=== PATIENT | female | born 1995 | race Caucasian/White ===

== ENCOUNTER 2018-09-25 09:20 | Emergency (ER) | payer BC ==
[2018-09-25 09:30] VITALS: PULSE 86; RESP 20; TEMP 98
[2018-09-25] MEDS ORDERED: SODIUM CHLORIDE 0.9% 1,000 ML IV STA (10:01)
[2018-09-25] MEDS ORDERED: ONDANSETRON 4 MG/2 ML VIAL IVP STA (10:15)
[2018-09-25] MEDS ORDERED: ACETAMINOPHEN IV (For NPO) 1,000 MG in EMPTY BAG 1 BAG IVPB STA (10:15)
[2018-09-25 10:17] VITALS: BP 117/77
[2018-09-25 10:30] LABS: Basophils % (A) 0 %; Eosinophils # (A) 0.3 k/uL (0-0.7); Eosinophils % (A) 3 %; HCT 43.1 % (34.0-46.0); HGB 14.2 gm/dL (11.4-16.0); Lymphocytes # (A) 1.2 k/uL (1.0-4.8); Lymphocytes % (A) 12 %; MCH 30.2 pg (25.0-35.0); MCV 91.4 fL (80.0-100.0); Mean Platelet Volume 6.8; Monocytes # (A) 0.5 k/uL (0-1.0); Monocytes % (A) 4 %; Neutrophils # (A) 8.4 k/uL (1.3-7.7); Neutrophils % (A) 80 %; Platelet Count 413 k/uL (150-450); RBC 4.71 m/uL (3.80-5.40); RDW 12.2 % (11.5-15.5); WBC 10.6 k/uL (3.8-10.6)
[2018-09-25 10:34] LABS: Appearance,Urine Clear (Clear); Bilirubin,Urine Negative (Negative); Blood,Urine Small (Negative); Color,Urine Yellow; Glucose,Urine (UA) Negative (Negative); Ketones,Urine Negative (Negative); Leukocyte Esterase,Urine Negative (Negative); Mucus,Urine Few /hpf; Nitrite,Urine Negative (Negative); Protein,Urine Trace (Negative); RBC,Urine 2 /hpf (0-5); Specific Gravity,Urine 1.021 (1.001-1.035); Squamous Epithelial Cell,Urine <1 /hpf (0-4); Urobilinogen,Urine <2.0 mg/dL (<2.0)
--- NOTE | 2018-09-25 10:37 | ED ---
General Adult HPI - General Chief complaint: Abdominal Pain Stated complaint: Abd Pain Time Seen by Provider: 09/25/18 09:49 Source: patient, RN notes reviewed Mode of arrival: wheelchair Limitations: no limitations - History of Present Illness Initial comments: Patient 23-year-old female presenting to the emergency room today with a chief complaint of abdominal pain that started yesterday. States she was at work today and the pain doubled her over. She does admit to pain in the right side of the abdomen. States she did go to urgent care. She states she was advised coming here to the emergency room to rule out appendicitis. Patient does admit to feeling nauseated. Denies any other complaints. Patient denies any recent fever, chills, shortness of breath, chest pain, back pain, numbness or tingling , headaches or visual changes, or any other complaints. - Related Data Home Medications Medication Instructions Recorded Confirmed Ibuprofen [Motrin Ib] 400 mg PO Q6H PRN 09/25/18 09/25/18 LORazepam [Ativan] 0.5 mg PO HS 09/25/18 09/25/18 buPROPion XL [Wellbutrin Xl] 150 mg PO DAILY 09/25/18 09/25/18 lamoTRIgine [LaMICtal] 150 mg PO HS 09/25/18 09/25/18 Allergies Allergy/AdvReac Type Severity Reaction Status Date / Time No Known Allergies Allergy Verified 09/25/18 09:49 Review of Systems ROS Statement: Those systems with pertinent positive or pertinent negative responses have been documented in the HPI. ROS Other: All systems not noted in ROS Statement are negative. Past Medical History Past Medical History: Asthma History of Any Multi-Drug Resistant Organisms: None Reported Past Surgical History: No Surgical Hx Reported Past Psychological History: No Psychological Hx Reported Smoking Status: Never smoker Past Alcohol Use History: None Reported Past Drug Use History: None Reported General Exam - General Exam Comments Initial Comments: General: The patient is awake and alert, in no distress, and does not appear acutely ill. Eye: There is normal conjunctiva bilaterally. No signs of icterus. Ears, nose, mouth and throat: There are moist mucous membranes and no oral lesions. Neck: The neck is supple, there is no tenderness or JVD. Cardiovascular: There is a regular rate and rhythm. No murmur, rub or gallop is appreciated. Respiratory: Lungs are clear to auscultation, respirations are non-labored, breath sounds are equal. No wheezes, stridor, rales, or rhonchi. Gastrointestinal: Abdomen soft on palpation. Patient does have tenderness in the right lower quadrant. No rebound, guarding or CVA tenderness. Musculoskeletal: Normal ROM, no tenderness. Strength 5/5. Sensation intact. Pulses equal bilaterally 2+. Neurological: A&O x 3. CN II-XII intact, There are no obvious motor or sensory deficits. Coordination appears grossly intact. Speech is normal. Skin: Skin is warm and dry and no rashes or lesions are noted. Psychiatric: Cooperative, appropriate mood & affect, normal judgment. Limitations: no limitations Course Vital Signs 09/25/18 09/25/18 09:28 10:00 Temperature 98.0 F Pulse Rate 86 Respiratory 20 Rate Blood Pressure 125/79 117/77 O2 Sat by Pulse 100 Oximetry Medical Decision Making - Medical Decision Making Patient reexamined at this time shows no signs of distress is resting comfortably. Patient's labs been reviewed. Glucose was 66. Patient was given something to eat and drink here prior to discharge. Patient's CT the abdomen and pelvis reviewed and shows evidence for hemorrhage normal. Heart shows a most likely uterine fibroid. There is some free fluid on the lower cul-de-sac. No evidence of any ovarian cyst. Ovaries appeared normal. Was discussed with the patient about following up with family doctor over the next 2 days return here to the emergency room symptoms increase or worsen. She states understanding and is in agreement. - Lab Data Result diagrams: 09/25/18 09:55 09/25/18 09:55 Lab Results 09/25/18 09/25/18 09/25/18 Range/Units 09:55 09:55 10:05 WBC 10.6 (3.8-10.6) k/uL RBC 4.71 (3.80-5.40) m/uL Hgb 14.2 (11.4-16.0) gm/dL Hct 43.1 (34.0-46.0) % MCV 91.4 (80.0-100.0) fL MCH 30.2 (25.0-35.0) pg MCHC 33.0 (31.0-37.0) g/dL RDW 12.2 (11.5-15.5) % Plt Count 413 (150-450) k/uL Neutrophils % 80 % Lymphocytes % 12 % Monocytes % 4 % Eosinophils % 3 % Basophils % 0 % Neutrophils # 8.4 H (1.3-7.7) k/uL Lymphocytes # 1.2 (1.0-4.8) k/uL Monocytes # 0.5 (0-1.0) k/uL Eosinophils # 0.3 (0-0.7) k/uL Basophils # 0.0 (0-0.2) k/uL Sodium 142 (137-145) mmol/L Potassium 4.5 (3.5-5.1) mmol/L Chloride 106 (98-107) mmol/L Carbon Dioxide 26 (22-30) mmol/L Anion Gap 10 mmol/L BUN 11 (7-17) mg/dL Creatinine 0.72 (0.52-1.04) mg/dL Est GFR (CKD-EPI)AfAm >90 (>60 ml/min/1.73 sqM) Est GFR (CKD-EPI)NonAf >90 (>60 ml/min/1.73 sqM) Glucose 66 L (74-99) mg/dL Calcium 9.8 (8.4-10.2) mg/dL Total Bilirubin 0.4 (0.2-1.3) mg/dL AST 19 (14-36) U/L ALT 19 (9-52) U/L Alkaline Phosphatase 40 (38-126) U/L Total Protein 7.4 (6.3-8.2) g/dL Albumin 4.5 (3.5-5.0) g/dL Amylase 52 (30-110) U/L Lipase 143 (23-300) U/L Urine Color Urine Appearance (Clear) Urine pH (5.0-8.0) Ur Specific [place] (1.001-1.035) Urine Protein (Negative) Urine Glucose (UA) (Negative) Urine Ketones (Negative) Urine Blood (Negative) Urine Nitrite (Negative) Urine Bilirubin (Negative) Urine Urobilinogen (<2.0) mg/dL Ur Leukocyte Esterase (Negative) Urine RBC (0-5) /hpf Urine WBC (0-5) /hpf Ur Squamous Epith Cells (0-4) /hpf Urine Mucus (None) /hpf Urine HCG, Qual Not Detected (Not Detectd) 09/25/18 Range/Units 10:05 WBC (3.8-10.6) k/uL RBC (3.80-5.40) m/uL Hgb (11.4-16.0) gm/dL Hct (34.0-46.0) % MCV (80.0-100.0) fL MCH (25.0-35.0) pg MCHC (31.0-37.0) g/dL RDW (11.5-15.5) % Plt Count (150-450) k/uL Neutrophils % % Lymphocytes % % Monocytes % % Eosinophils % % Basophils % % Neutrophils # (1.3-7.7) k/uL Lymphocytes # (1.0-4.8) k/uL Monocytes # (0-1.0) k/uL Eosinophils # (0-0.7) k/uL Basophils # (0-0.2) k/uL Sodium (137-145) mmol/L Potassium (3.5-5.1) mmol/L Chloride (98-107) mmol/L Carbon Dioxide (22-30) mmol/L Anion Gap mmol/L BUN (7-17) mg/dL Creatinine (0.52-1.04) mg/dL Est GFR (CKD-EPI)AfAm (>60 ml/min/1.73 sqM) Est GFR (CKD-EPI)NonAf (>60 ml/min/1.73 sqM) Glucose (74-99) mg/dL Calcium (8.4-10.2) mg/dL Total Bilirubin (0.2-1.3) mg/dL AST (14-36) U/L ALT (9-52) U/L Alkaline Phosphatase (38-126) U/L Total Protein (6.3-8.2) g/dL Albumin (3.5-5.0) g/dL Amylase (30-110) U/L Lipase (23-300) U/L Urine Color Yellow Urine Appearance Clear (Clear) Urine pH 6.0 (5.0-8.0) Ur Specific [place] 1.021 (1.001-1.035) Urine Protein Trace H (Negative) Urine Glucose (UA) Negative (Negative) Urine Ketones Negative (Negative) Urine Blood Small H (Negative) Urine Nitrite Negative (Negative) Urine Bilirubin Negative (Negative) Urine Urobilinogen <2.0 (<2.0) mg/dL Ur Leukocyte Esterase Negative (Negative) Urine RBC 2 (0-5) /hpf Urine WBC 1 (0-5) /hpf Ur Squamous Epith Cells <1 (0-4) /hpf Urine Mucus Few H (None) /hpf Urine HCG, Qual (Not Detectd) Disposition Clinical Impression: Abdominal pain Disposition: HOME SELF-CARE Condition: Good Instructions: Abdominal Pain (ED) Additional Instructions: Please use medication as discussed. Please follow-up with family doctor in the next 2 days. Please return to emergency room if the symptoms increase or worsen or for any other concerns. Is patient prescribed a controlled substance at d/c from ED?: No Referrals: Je Carrillo MD [Primary Care Provider] - 1-2 days Time of Disposition: 12:20
[2018-09-25 10:43] LABS: ALT 19 U/L (9-52); AST 19 U/L (14-36); Albumin 4.5 g/dL (3.5-5.0); Alkaline Phosphatase 40 U/L (38-126); Amylase 52 U/L (30-110); Anion Gap 10 mmol/L; Blood Urea Nitrogen 11 mg/dL (7-17); Calcium 9.8 mg/dL (8.4-10.2); Carbon Dioxide 26 mmol/L (22-30); Chloride 106 mmol/L (98-107); Glucose 66 mg/dL (74-99); Lipase 143 U/L (23-300); Potassium 4.5 mmol/L (3.5-5.1); Sodium 142 mmol/L (137-145); Total Bilirubin 0.4 mg/dL (0.2-1.3); Total Protein 7.4 g/dL (6.3-8.2)
--- NOTE | 2018-09-25 11:29 | CT ---
EXAMINATION TYPE: CT abdomen pelvis w con DATE OF EXAM: 09/25/2018 COMPARISON: None HISTORY: RLQ pain, umbilical pain CT DLP: 526.7 mGycm Automated exposure control for dose reduction was used. TECHNIQUE: Helical acquisition of images from the lung bases through the pelvis have been completed. CONTRAST: Performed without Oral Contrast and with IV Contrast, patient injected with 100 mL of Isovue 300. FINDINGS: LUNG BASES: No significant abnormality is appreciated. AORTA: No significant abnormality is appreciated. LIVER/GB: Initial images show a dense focus within the left lobe of the liver measuring approximately 12 to 13 mm in size lateral segment is not seen on delayed images. Gallbladder is unremarkable.. PANCREAS: No significant abnormality is seen. SPLEEN: No significant abnormality is seen. ADRENALS: No significant abnormality is seen. KIDNEYS: No significant abnormality is seen. REPRODUCTIVE ORGANS: Focal low density lesion measuring approximately 2 cm in the left fundus compati ble with fibroid, ovaries within normal limits. Suspect a tampon is in place. BOWEL: Questionable thickening of the rectosigmoid colon.. No evident appendicitis in the visualized portions of the appendix. FREE AIR: No Free Air visible. Minimal free fluid present within the pelvis may be physiologic. PELVIC ADENOPATHY: None visualized. RETROPERITONEAL ADENOPATHY: No Retroperitoneal Adenopathy visible. URINARY BLADDER: No significant abnormality is seen. OSSEOUS STRUCTURES: No significant abnormality is seen. IMPRESSION: INDETERMINATE LESION WITHIN THE LEFT LOBE OF LIVER MAY REPRESENT HEMANGIOMA, LIVER MRI COULD BE PERFO RMED FOR BETTER EVALUATION. MINIMAL FREE FLUID IN THE PELVIS, FIBROID UTERUS. CORRELATE FOR COLITIS, FOLLOW-UP INDICATED.
== END 2018-09-25 12:49 | disposition home or self-care (01) ==
LOC: EC 09:20
DX: R10.9 Unspecified abdominal pain (principal); R11.0 Nausea; Z79.899 Other long term (current) drug therapy
CPT/HCPCS: 36415; 80053; 82150; 83690; 85025; 81001; 81025; 74177; 99284; 96365; 96366; 96375; 96361; J2405; J0131; Q9967

== ENCOUNTER 2023-09-27 20:43 | Emergency (ER) | payer BC, OTHER ==
[2023-09-27 20:59] VITALS: TEMP 98.3
--- NOTE | 2023-09-27 21:21 | ED ---
Allergic Reaction HPI - General Chief complaint: Allergic Reaction Stated complaint: Allergic Reaction Time Seen by Provider: 09/27/23 21:08 Source: patient Mode of arrival: ambulatory Limitations: no limitations - History of Present Illness Initial Comments: Anamaria is a 28-year-old female with no significant past medical history presents the ER today with concern for ALLERGIC reaction. Patient reports that she was at a [employer] party using multiple different foods when suddenly she felt like her tongue was swelling up. She went to an urgent care where she was given IM doses of steroid and Benadryl and prescribed EpiPen. While she was at the pharmacy having her EpiPen filled she again noted that her tongue was swelling up. She didn't have any chest pain or trouble breathing she had no nausea and no GI symptoms. No rash or hives. She has no previous history of ALLERGIC reaction so she does report she has some food intolerances. - Related Data Home Medications Medication Instructions Recorded Confirmed Ibuprofen [Motrin Ib] 400 mg PO Q6H PRN 09/25/18 09/25/18 LORazepam [Ativan] 0.5 mg PO HS 09/25/18 09/25/18 buPROPion XL [Wellbutrin Xl] 150 mg PO DAILY 09/25/18 09/25/18 lamoTRIgine [LaMICtal] 150 mg PO HS 09/25/18 09/25/18 Allergies Allergy/AdvReac Type Severity Reaction Status Date / Time No Known Allergies Allergy Verified 09/25/18 09:49 Review of Systems ROS Statement: Those systems with pertinent positive or pertinent negative responses have been documented in the HPI. ROS Other: All systems not noted in ROS Statement are negative. Past Medical History Past Medical History: Asthma History of Any Multi-Drug Resistant Organisms: None Reported Past Surgical History: No Surgical Hx Reported Past Psychological History: No Psychological Hx Reported Smoking Status: Never smoker Past Alcohol Use History: None Reported Past Drug Use History: None Reported General Exam Limitations: no limitations General appearance: alert Head exam: Present: atraumatic Eye exam: Present: normal appearance, PERRL ENT exam: Present: other (Angioedema of the tongue, no angioedema of the lips no angioedema of the uvula) Neck exam: Present: normal inspection Respiratory exam: Present: normal lung sounds bilaterally. Absent: respiratory distress Cardiovascular Exam: Present: regular rate, tachycardia GI/Abdominal exam: Present: soft. Absent: distended, tenderness Rectal exam: Present: deferred Neurological exam: Present: alert, oriented X3 Psychiatric exam: Present: normal affect, normal mood Skin exam: Present: warm, dry Course Vital Signs 09/27/23 09/27/23 09/27/23 20:44 21:03 21:10 Temperature 98.3 F Pulse Rate 125 H 110 H 103 H Respiratory 20 23 20 Rate Blood Pressure 160/93 131/87 131/87 O2 Sat by Pulse 100 100 100 Oximetry 09/27/23 09/27/23 09/27/23 21:20 21:30 21:40 Temperature Pulse Rate 109 H 115 H 103 H Respiratory 15 14 18 Rate Blood Pressure 120/82 128/91 115/83 O2 Sat by Pulse 100 100 100 Oximetry 09/27/23 09/27/23 09/27/23 21:45 21:50 21:55 Temperature Pulse Rate 113 H 108 H 104 H Respiratory 20 20 18 Rate Blood Pressure 133/84 128/85 130/78 O2 Sat by Pulse 100 100 100 Oximetry 09/27/23 09/27/23 09/27/23 22:00 22:05 22:10 Temperature Pulse Rate 107 H 105 H 105 H Respiratory 22 20 18 Rate Blood Pressure 128/75 116/78 115/77 O2 Sat by Pulse 100 100 99 Oximetry 09/27/23 09/27/23 22:15 23:11 Temperature Pulse Rate 115 H 99 Respiratory 19 18 Rate Blood Pressure 120/73 122/84 O2 Sat by Pulse 99 100 Oximetry Medical Decision Making - Medical Decision Making Was pt. sent in by a medical professional or institution (, PA, SOFTWARE SECURITY ARCHITECT, urgent care, hospital, or assisted...) When possible be specific @ -Advised by urgent care to come here if symptoms persisted Did you speak to anyone other than the patient for history (EMS, parent, family, police, friend...)? What history was obtained from this source @ -Friend At bedside Did you review nursing and triage notes (agree or disagree)? Why? @ -I reviewed and agree with nursing and triage notes Were old charts reviewed (outside hosp., previous admission, EMS record, old EKG, old radiological studies, urgent care reports/EKG's, assisted records)? Report findings @ -No old charts were reviewed Differential Diagnosis (chest pain, altered mental status, abdominal pain women, abdominal pain men, vaginal bleeding, weakness, fever, dyspnea, syncope, headache, dizziness, GI bleed, back pain, seizure, CVA, palpatations, mental health)? @ -Differential includes ALLERGIC reaction, anaphylaxis, angioedema EKG interpreted by me (3pts min.). @ -As above X-rays interpreted by me (1pt min.). @ -None done CT interpreted by me (1pt min.). @ -None done U/S interpreted by me (1pt. min.). @ -None done What testing was considered but not performed or refused? (CT, X-rays, U/S, labs)? Why? @ -None What meds were considered but not given or refused? Why? @ -Benadryl and steroids had been given prior to arrival Did you discuss the management of the patient with other professionals (professionals i.e. , PA, SOFTWARE SECURITY ARCHITECT, lab, RT, psych nurse, social work associate, distributor cleaner, teacher, science and operations officer, caser)? Give summary @ -No Was smoking cessation discussed for >3mins.? @ -No Was critical care preformed (if so, how long)? @ -Yes, 30 minutes Were there social determinants of health that impacted care today? How? (Homelessness, low income, unemployed, alcoholism, drug addiction, transportation, low edu. Level, literacy, decrease access to med. care, snf, rehab)? @ -No Was there de-escalation of care discussed even if they declined (Discuss DNR or withdrawal of care, Hospice)? DNR status @ -No What co-morbidities impacted this encounter? (DM, HTN, Smoking, COPD, CAD, Cancer, CVA, ARF, Chemo, Hep., AIDS, mental health diagnosis, sleep apnea, morbid obesity)? @ -None Was patient admitted / discharged? Hospital course, mention meds given and route, prescriptions, significant lab abnormalities, going to OR and other pertinent info. @ -Discharge Patient was seen and evaluated, patient believes she is having an ALLERGIC reaction she is noted to have angioedema of the tongue with no angioedema of the lips or uvula. There is no wheezing is no rash there is no nausea or vomiting. At this time it seems to be isolated angioedema of the tongue patient has received Benadryl and steroids prior to arrival. Patient was given intramuscular epinephrine and observed for 90 minutes. She had some improvement in the angioedema she is feeling more comfortable she was able to drink water. At this time patient was determined to be stable for discharge home. She's been prescribed EpiPen and has felt the prescription. I did advise the patient keep track of any ingestions she has prior to episodes of this and if she has any episodes of this that occur without new exposures she should consider speaking with her physician about the possibility that she has hereditary angioedema. These instructions were provided a prior to discharge patient was discharged home in stable condition. Undiagnosed new problem with uncertain prognosis? @ -No Drug Therapy requiring intensive monitoring for toxicity (Heparin, Nitro, Insulin, Cardizem)? @ -No Were any procedures done? @ -No Diagnosis/symptom? @ -Angioedema of the tongue Acute, or Chronic, or Acute on Chronic? @ -default Uncomplicated (without systemic symptoms) or Complicated (systemic symptoms)? @ -default Side effects of treatment? @ -No Exacerbation, Progression, or Severe Exacerbation? @ -No Poses a threat to life or bodily function? How? (Chest pain, [place], [place], pneumonia, PE, COPD, DKA, ARF, appy, cholecystitis, CVA, Diverticulitis, Homicidal, Suicidal, threat to staff... and all critical care pts) @ -No Disposition Clinical Impression: Angioedema Disposition: HOME SELF-CARE Condition: Stable Additional Instructions: As discussed, it is possible that he had an ALLERGIC reaction however this happens again especially without provocation you need to discussed with her primary care provider further testing for hereditary angioedema Is patient prescribed a controlled substance at d/c from ED?: No Referrals: Veronica Lal DO [Primary Care Provider] - 1-2 days
[2023-09-27 23:18] VITALS: BP 122/84; PULSE 99; RESP 18
== END 2023-09-27 23:12 | disposition home or self-care (01) ==
LOC: EC 20:43 → SUPCPDRO 20:43 → EC 23:12
DX: T78.3XXA Angioneurotic edema, initial encounter (principal); J45.909 Unspecified asthma, uncomplicated
CPT/HCPCS: 99283; 96372; J0171

== ENCOUNTER 2025-02-04 08:31 | Day surgery (SDC) | payer OTHER ==
[2025-01-28 15:42] VITALS: BMI 25.0
[~2025-02-04 08:31] MED LIST: LIDOCAINE 1% (10MG/ML) FOR IV START INTRADERMA PRN
[2025-02-04] MEDS: IV FLUID CONTINUATION 1,000 ML IV ONE (08:56)
--- NOTE | 2025-02-04 08:58 | P.GSHP ---
History of Present Illness H&P Date: 02/04/25 CHIEF COMPLAINT: GI bleed HISTORY OF PRESENT ILLNESS: The patient is a 29-year-old female who presents with gastroesophageal reflux disease and need for colon screen. Upper and lower endoscopy were offered for further evaluation and management. PAST MEDICAL HISTORY: Please see list. PAST SURGICAL HISTORY: Please see list. MEDICATIONS: Please see list. ALLERGIES: Please see list. SOCIAL HISTORY: No illicit drug use FAMILY HISTORY: No reports of Crohn disease or ulcerative colitis. REVIEW OF ORGAN SYSTEMS: CONSTITUTIONAL: No reports of fevers or chills. GI: Denies any blood in stools or constipation. PHYSICAL EXAM: VITAL SIGNS: Stable GENERAL: Well-developed pleasant in no acute distress. HEENT: No scleral icterus. Extraocular movements grossly intact. Moist buccal mucosa. NECK: Supple without lymphadenopathy. CHEST: Unlabored respirations. Equal bilateral excursions. CARDIOVASCULAR: Regular rate and rhythm. Distal 2+ pulses. ABDOMEN: Soft, nondistended. MUSCULOSKELETAL: No clubbing, cyanosis, or edema. ASSESSMENT: 1. GI bleed PLAN: 1. Recommend proceeding with an upper and lower endoscopy Past Medical History Past Medical History: Asthma History of Any Multi-Drug Resistant Organisms: None Reported Past Surgical History: No Surgical Hx Reported Additional Past Surgical History / Comment(s): wisdom teeth Past Anesthesia/Blood Transfusion Reactions: No Reported Reaction Smoking Status: Never smoker - Past Family History Father Family Medical History: Myocardial Infarction ([place]) Mother Family Medical History: No Reported History Medications and Allergies Home Medications Medication Instructions Recorded Confirmed Type Ibuprofen [Motrin Ib] 400 mg PO Q6H PRN 09/25/18 01/28/25 History buPROPion XL [Wellbutrin Xl] 150 mg PO DAILY 09/25/18 01/28/25 History lamoTRIgine [LaMICtal] 150 mg PO HS 09/25/18 01/28/25 History ARIPiprazole [Abilify] 5 mg PO HS 01/28/25 01/28/25 History busPIRone HCl [Buspar] 5 mg PO BID 01/28/25 01/28/25 History Allergies Allergy/AdvReac Type Severity Reaction Status Date / Time No Known Allergies Allergy Verified 01/28/25 15:33
[2025-02-04 09:00] VITALS: TEMP 97.5
[2025-02-04] MEDS: LACTATED RINGERS 1,000 ML IV SCH (09:11)
[2025-02-04] MEDS ORDERED: LIDOCAINE 1% INJ 10MG/ML (20 ML MDV) ONE (09:18)
[2025-02-04] MEDS ORDERED: PROPOFOL 10 MG/ML 20 ML VIAL IV ONE (09:18)
[2025-02-04] MEDS ORDERED: GLYCOPYRROLATE 0.2 MG/ML 2 ML VIAL ONE (09:18)
--- NOTE | 2025-02-04 09:49 | P.PCN ---
Date of Procedure: 02/04/25 Description of Procedure: PREOPERATIVE DIAGNOSIS: Anemia Gastrointestinal bleed POSTOPERATIVE DIAGNOSIS: Gastritis OPERATION: Esophagogastroduodenoscopy with cold forceps biopsies along antrum and duodenum SURGEON: Areli Denise MD ANESTHESIA: MAC. INDICATIONS: The patient is a 29-year-old female who presents with anemia and gastrointestinal bleed. Benefits and risks of the procedure were described. Informed consent was obtained. DESCRIPTION: The patient was brought into the endoscopy suite and laid in the left lateral decubitus position. An Olympus gastroscope was passed along the posterior oropharynx down to the distal esophagus where the squamocolumnar junction was encountered at 35 cm from the incisors. The stomach was entered and no bile reflux was found. Additional findings are listed below. Biopsies with cold forceps were obtained of the antrum. The first through third portion of the duodenum was examined. Retroflexion of the scope confirmed Hill grade 2 lower esophageal valve. The squamocolumnar junction demonstrated LA grade A erosive esophagitis. The stomach was desufflated. The patient tolerated the procedure well. FINDINGS: Squamocolumnar junction 35 cm from the incisors. Diaphragmatic hiatus at 35 cm. Hill grade 2 lower esophageal valve. LA grade A erosive esophagitis. Biopsies obtained. Biopsies obtained of the duodenum. Chronic gastritis with biopsies obtained. RECOMMENDATIONS: Upper endoscopy as needed.
--- NOTE | 2025-02-04 10:13 | P.PCN ---
Date of Procedure: 02/04/25 Description of Procedure: PREOPERATIVE DIAGNOSIS: Abnormal stool function Change in bowel habits POSTOPERATIVE DIAGNOSIS: Microscopic colitis OPERATION: Colonoscopy to the cecum, ileocecal valve and appendiceal orifice. Colonoscopy with random cold forceps biopsies for microscopic colitis SURGEON: Areli Denise MD. ANESTHESIA: MAC. INDICATIONS: The patient is a 29-year-old female who presents with altered stools including change in bowel habits. Benefits and risks were described and informed consent was obtained. DESCRIPTION OF PROCEDURE: The patient had undergone Suprep. The patient had been brought into the operating room and laid in the left lateral decubitus position. After adequate intravenous sedation, the rectum was examined with 2% lidocaine jelly. No external hemorrhoids were encountered. The rectal tone was within normal limits. No lesions were palpated in the rectal vault. An Olympus colonoscope was advanced until the cecum, ileocecal valve and appendiceal orifice were clearly viewed. The prep was excellent. No scattered diverticulosis was encountered. No colonic polyps were found. Cold forceps biopsies randomly were obtained for microscopic colitis. Retroflexion of the scope demonstrated grade 1 internal hemorrhoids without active bleeding or inflammation. The colon was desufflated. The patient had tolerated the procedure well. Withdrawal time was over 6 minutes. FINDINGS: Aronchick preparation quality scale 1 (1-5) Internal hemorrhoids, grade 1 No external prolapsed hemorrhoids. No arteriovenous malformations. No adenomatous polyps. Cold forceps biopsies obtained for microscopic colitis RECOMMENDATIONS: Lower endoscopy as needed Plan - Discharge Summary Discharge Rx Participant: No New Discharge Prescriptions: Continue lamoTRIgine [LaMICtal] 150 mg PO HS Ibuprofen [Motrin Ib] 400 mg PO Q6H PRN PRN Reason: Pain buPROPion XL [Wellbutrin XL] 150 mg PO DAILY ARIPiprazole [Abilify] 5 mg PO HS busPIRone HCl [Buspar] 5 mg PO BID Discharge Medication List Ibuprofen [Motrin Ib] 400 mg PO Q6H PRN 09/25/18 [History] buPROPion XL [Wellbutrin XL] 150 mg PO DAILY 09/25/18 [History] lamoTRIgine [LaMICtal] 150 mg PO HS 09/25/18 [History] ARIPiprazole [Abilify] 5 mg PO HS 01/28/25 [History] busPIRone HCl [Buspar] 5 mg PO BID 01/28/25 [History] Follow up Appointment(s)/Referral(s): Areli Denise MD [STAFF PHYSICIAN] - 03/03/25 3:30 pm Patient Instructions/Handouts: Gastritis (DC), Microscopic Colitis (DC) Discharge Disposition: HOME SELF-CARE
[2025-02-04 10:26] VITALS: BP 110/72; PULSE 76; RESP 16
== END 2025-02-04 11:18 | disposition home or self-care (01) ==
LOC: ORWHC2ENDO 08:31
PROVIDERS: ATTEND Surgery Plastic and Reconstructive Surgery
DX: K29.51 Unspecified chronic gastritis with bleeding (principal); K21.00 Gastro-esophageal reflux disease with esophagitis, without bleeding; D64.9 Anemia, unspecified; K64.0 First degree hemorrhoids; J45.909 Unspecified asthma, uncomplicated; F31.9 Bipolar disorder, unspecified; F41.9 Anxiety disorder, unspecified; Z82.49 Family history of ischemic heart disease and other diseases of the circulatory system; Z79.1 Long term (current) use of non-steroidal anti-inflammatories (NSAID); Z79.899 Other long term (current) drug therapy
CPT/HCPCS: 81025; 88305; 45380; 43239; J2003; J2704; J1596